=== PATIENT | female | born 1965 | race African-American/Black ===

== ENCOUNTER 2017-02-18 13:09 | Emergency (ER) | payer OTHER ==
[~2017-02-18] VITALS: Ht 167.6 cm; Wt 72.6 kg
[~2017-02-18 13:09] MED LIST: CELEXA 10 MG TA10 M1 PO; CYMBALTA20 MG; DIFLUCAN150 MG PO; FLEXERIL PO; HYDROXYZINE HCL10 M1 PO; K-DUR 20 MEQ T20 MEQ PO; LASIX 20 MG TAB20 MG PO; NAPROSYN500 MG PO; NOHOMEMEDICATIONS; NORCO 5-325 TA1 EACH PO; NORFLEX100 MG PO; OXYCODONE HCL10 MG PO; PERCOCET; PERIACTIN PO; PREDNISONE 20 M20 MG PO; PROPRANOLOL 1010 MG PO; REGLAN 10 MG TA10 MG PO; TRAMADOL 50 MG50 MG PO; ULTRAM 50MG TAB50 MG PO; ZANAFLEX4 MG PO; ZOFRAN4 MG PO
[2017-02-18 13:10] VITALS: BP 144/109
== END 2017-02-18 13:42 | disposition left against medical advice (07) ==
LOC: ER 13:09
DX: Z53.21 Procedure and treatment not carried out due to patient leaving prior to being seen by health care provider (principal)

== ENCOUNTER → 2017-03-21 | Outpatient (CLI) | payer OTHER | LOC: RAD 08:00 | DX: Z12.31 Encounter for screening mammogram for malignant neoplasm of breast (principal) ==

== ENCOUNTER 2019-12-14 17:17 | Inpatient (IN) | payer OTHER ==
[~2019-12-14] VITALS: Ht 167.6 cm; Wt 98.4 kg
[2019-12-14 17:45] VITALS: BP 124/78
[2019-12-14 19:08] LABS: ANION GAP 7 mmol/L (7-16); BUN 16 mg/dL (7-18); CALCIUM 8.5 mg/dL (8.5-10.1); CHLORIDE 104 mmol/L (98-107); CO2 29 mmol/L (21-32); CREATININE 1.2 mg/dL (0.6-1.0); GLUCOSE 100 mg/dL (74-106); POTASSIUM 4.4 mmol/L (3.5-5.1); SODIUM 140 mmol/L (136-145)
[2019-12-14 19:09] LABS: HEMATOCRIT 28.5 % (37.0-47.0); HEMOGLOBIN 9.3 gm/dL (12.0-15.0); MCH 27.3 pg (26.0-34.0); MCHC 32.5 g/dL (28.0-37.0); MCV 83.9 fL (80.0-100.0); PLATELET COUNT 168 thou/uL (150-400); RBC 3.39 mil/uL (4.20-5.00); RDW 15.5 % (10.5-14.5); WBC 2.3 thou/uL (4.0-11.0)
[2019-12-14 19:18] LABS: ALBUMIN 3.5 g/dL (3.4-5.0); MAGNESIUM 2.1 mg/dL (1.8-2.4); SGOT 54 U/L (15-37); SGPT 52 U/L (30-65); TOTAL BILIRUBIN 0.3 mg/dL (0.2-1.0); TOTAL PROTEIN 7.1 g/dL (6.4-8.2); TROPONIN-I <0.06 ng/mL (<0.06)
[2019-12-14] MEDS ORDERED: HYDROXYZINE HCL50 MG PO (19:20)
[2019-12-14] MEDS ORDERED: AMITRIPTYLINE100 MG PO (19:21)
[2019-12-14] MEDS ORDERED: ZANAFLEX2 M1 PO (19:21)
[2019-12-14] MEDS ORDERED: DRIZALMA SPRINK20 MG PO (19:21)
[2019-12-14 19:25] LABS: D-DIMER 0.42 ug/mLFEU (0.19-0.50); PROTIME 10.4 Seconds (9.3-11.4)
[2019-12-14 20:06] LABS: ABSOLUTE NEUTROPHILS 1.5 thou/uL (1.4-8.2); PLATELET ESTIMATE NORMAL
[2019-12-14 23:00] LABS: URINE BILIRUBIN NEGATIVE (Negative); URINE BLOOD NEGATIVE (Negative); URINE CLARITY CLEAR; URINE COLOR YELLOW; URINE GLUCOSE-RANDOM* NEGATIVE (Negative); URINE KETONES NEGATIVE (Negative); URINE LEUKOCYTES-REFLEX NEGATIVE (Negative); URINE NITRITE-REFLEX NEGATIVE (Negative); URINE PROTEIN (DIPSTICK) NEGATIVE (Negative); URINE SPECIFIC GRAVITY <= 1.005 (1.005-1.035); URINE UROBILINOGEN 0.2 E.U./dl (0.2-1.0)
[2019-12-14 23:09] VITALS: BP 162/106
[2019-12-14 23:13] VITALS: BP 167/106
[2019-12-15 00:05] VITALS: BP 153/115
[2019-12-15 03:01] LABS: AMP/METHAMP Negative (Negative); BARBITURATES Negative (Negative); BENZODIAZEPINES Negative (Negative); COCAINE Negative (Negative); METHADONE Negative (Negative); OPIATES Negative (Negative); PCP Negative (Negative)
--- NOTE | 2019-12-15 03:49 | NUR ---
PT ARRIVED FROM THE ER @2320 THIS SHIFT. A&OX4. ADMISSION DONE AND PT ORIENTED TO THE UNIT. C/O PAIN IV FENTANYL GIVEN. PT UP ADLIB. IV INTACT AND SL. ILYA LOWER EXT SWELLING NOTED. CALL LIGHT IN REACH WILL CONT TO MONITOR.
[2019-12-15 04:15] VITALS: BP 172/96
--- NOTE | 2019-12-15 08:29 | EKG ---
[facility] [place] [address] ELECTROCARDIOGRAM REPORT Name: TAMAR COYLE Room #: 447-P ADM IN M.R.#: [id number] Admission: 12/14/19 Attend Phys: Leena Cho Discharge: Date of : 67 Report #: [id number] THIS REPORT FOR: cc: BRADY - No family physician/PCP FAM - No family physician/PCP Edy York MD [facility] THIS REPORT FOR: //name// [facility] ED Test Date: 2019-12-14 Test Time: 18:52:46 Pat Name: TAMAR COYLE Department: Room: [facility] Gender: F Manager Recruiting: JAXSON : 1965 Requested By: Medardo Rockwell Order Number: [id number] MD: Edy York Measurements Intervals [place] Rate: 89 P: 23 [place]: 156 QRS: 3 QRSD: 95 T: 24 QT: 365 QTc: 445 Interpretive Statements Sinus rhythm Anteroseptal infarct, old Compared to ECG 12/16/2015 16:00:34 No significant changes Electronically Signed On 12-15-2019 8:29:10 CDT by Edy York [email or web address] <ELECTRONICALLY SIGNED> By: Edy York MD, [facility] 12/15/19 0829 [id number] Edy York MD, [facility] /EPI
[2019-12-15 09:48] VITALS: BP 212/135
[2019-12-15 16:33] VITALS: BP 128/86
--- NOTE | 2019-12-15 18:23 | NUR ---
PT IS AOX4, VSS, BLOOD PRESSURE ELEVATED THIS MORNING. PT RECEIVED NEW ORDER FOR BLOOD PRESSURE MEDS. PT REPORTS PAIN 8-10 IN BLE. PAIN CONTROLLED WITH IV ANALGESIC. PT HAD SOME NAUSEA, NURSE GAVE IV ZOFRAN. PT CALLS APPROPRIATELY, UP AD NEGRITA IN ROOM. WILL CONT. TO MONITOR.
[2019-12-15 21:37] VITALS: BP 120/83
[2019-12-16 05:50] VITALS: BP 122/92
[2019-12-16 06:35] LABS: CALCIUM 9.3 mg/dL (8.5-10.1); MAGNESIUM 2.3 mg/dL (1.8-2.4); POTASSIUM 3.6 mmol/L (3.5-5.1); TOTAL BILIRUBIN 0.9 mg/dL (0.2-1.0); TOTAL PROTEIN 8.3 g/dL (6.4-8.2)
--- NOTE | 2019-12-16 07:37 | NUR ---
PT AOX4. PT REPORTS PAIN IN BLE. PT RECEIVING PRN IV FENTANYL Q4HR. PT TOLERATING PO INTAKE OF FLUIDS, NOTED TO HAVE DECREASED PO INTAKE OF HEART HEALTHY DIET, LESS THAN 25% OF DINNER EATEN. PT AMBULATES INDEPENDENTLY WITH STANDBY ASSIST IN ROOM AND TO BATHROOM. PT AWAKENED WITH BREATHROUGH PAIN. ONCALL PROVIDER NOTIFIED, EMAR UPDATED. PT RECEIVED 2MG MORPHINE IV ONETIME. ENCOURAGED PT TO NOTIFY STAFF FOR ALL NEEDS. CALL LIGHT WITHIN REACH, BED ALARM ON, BED IN LOWEST POSITION. WILL CONTINUE TO MONITOR.
[2019-12-16] MEDS ORDERED: TRANDATE 200 M200 M1 PO (09:58)
--- NOTE | 2019-12-16 10:07 | 2DMMODE ---
[facility] [address] [place] [address] 2 D/M-MODE ECHOCARDIOGRAM Name: TAMAR COYLE Pretty Room #: 447-P ADM IN M.R.#: [id number] Admission: 12/14/19 Attend Phys: Leena Cho Discharge: Date of : 67 Report #: [id number] THIS REPORT FOR: cc: FAM - No family physician/PCP FAM - No family physician/PCP Hank Mckeon MD ~ APPROVED REPORT Study performed: 12/16/2019 08:18:20 EXAM: Comprehensive 2D, Doppler, and color-flow Echocardiogram Patient Location: Bedside Room #: [facility] Status: routine BSA: 2.07 HR: 98 bpm BP: 122/92 mmHg Other Information Study Quality: Adequate Indications Hypertension/HDD Anasarca 2D Dimensions RVDd: 30.20 mm IVSd: 10.64 (7-11mm) LVOT Diam: 21.20 (18-24mm) LVDd: 42.97 mm PWd: 11.02 (7-11mm) Ascending Ao: 28.41 (22-36mm) LVDs: 31.04 (25-40mm) Aortic Root: 31.48 mm IVC: 14.00 mm Volumes Left Atrial Volume (Systole) Single Plane 4CH: 21.23 mL Single Plane 2CH: 22.31 mL LA ESV Index: 12.00 mL/m2 Aortic Valve AoV Peak Benjamin.: 1.43 m/s AO Peak Gr.: 8.20 mmHg LVOT Max P.12 mmHg LVOT Max V: 0.88 m/s FILIBERTO Vmax: 2.18 cm2 [facility] [address] [place] [address] 2 D/M-MODE ECHOCARDIOGRAM Name: TAMAR COYLE Room #: 447-P [facility]#: [id number] Admission: 12/14/19 Attend Phys: Leena Bravo Discharge: Date of : 67 Report #: [id number] Mitral Valve E/A Ratio: 0.8 MV Decel. Time: 144.89 ms MV E Max Benjamin.: 0.59 m/s MV A Benjamin.: 0.74 m/s MV PHT: 42.02 ms IVRT: 119.95 ms Pulmonary Valve PV Peak Benjamin.: 1.05 m/s PV Peak Gr.: 4.46 mmHg Pulmonary Vein P Vein S: 0.60 m/s P Vein A: 0.26 m/s P Vein D: 0.45 m/s P Vein A Dur.: 103.8 msec P Vein S/D Ratio: 1.33 Tricuspid Valve TR Peak Benjamin.: 2.33 m/s RAP Estimate: 5.00 mmHg TR Peak Gr.: 21.63 mmHg PA Pressure: 27.00 mmHg Left Ventricle The left ventricle is normal size. There is normal LV segmental wall motion. There is normal left ventricular wall thickness. The left ventricular systolic function is normal. The left ventricular ejection fraction is within the normal range. LVEF is 55-60%. Transmitral Doppler flow pattern suggests impaired LV relaxation. Right Ventricle The right ventricle is normal size. The right ventricular systolic function is normal. Atria The left atrium size is normal. The right atrium size is normal. Aortic Valve The aortic valve is normal in structure. No aortic regurgitation is present. There is no aortic valvular stenosis. Mitral Valve The mitral valve is normal in structure. There is no mitral valve regurgitation noted. No evidence of mitral valve stenosis. Tricuspid Valve [facility] [address] [place] [address] 2 D/M-MODE ECHOCARDIOGRAM Name: TAMAR COYLE Pretty Room #: 447-P [facility] IN M.R.#: [id number] Admission: 12/14/19 Attend Phys: Leena Bravo Discharge: Date of : 67 Report #: [id number] The tricuspid valve is normal in structure. Mild tricuspid regurgitation. PAP is estimated at 27 mmHg. Pulmonic Valve Pulmonic valve is not well visualized. Great Vessels The aortic root is normal in size. IVC is normal in size and collapses >50% with inspiration. Pericardium There is no pericardial effusion. <Conclusion> The left ventricle is normal size. There is normal left ventricular wall thickness. The left ventricular systolic function is normal. The right ventricle is normal size. The left atrium size is normal. The aortic valve is normal in structure. There is no mitral valve regurgitation noted. Mild tricuspid regurgitation. PAP is estimated at 27 mmHg. <ELECTRONICALLY SIGNED> By: Hank Mckeon MD 12/16/19 1006 1006 1006 Hank Mckeon MD /INF
[2019-12-16 14:26] VITALS: BP 122/92
== END 2019-12-16 16:06 | disposition home or self-care (01) | DRG 305 ==
LOC: ER 17:17 → 4S 20:13 → EROBS 20:13 → 4S 23:17
PROVIDERS: Emergency Medicine; Nurse Practitioner Family; ADMIT Hospitalist; ATTEND Hospitalist
DX: I16.9 Hypertensive crisis, unspecified (principal); D72.819 Decreased white blood cell count, unspecified; M51.16 Intervertebral disc disorders with radiculopathy, lumbar region; M51.26 Other intervertebral disc displacement, lumbar region; K21.9 Gastro-esophageal reflux disease without esophagitis; J45.909 Unspecified asthma, uncomplicated; D64.9 Anemia, unspecified; G89.29 Other chronic pain; M54.9 Dorsalgia, unspecified; K22.0 Achalasia of cardia; Z79.899 Other long term (current) drug therapy; Z90.49 Acquired absence of other specified parts of digestive tract; Z88.0 Allergy status to penicillin; Z88.6 Allergy status to analgesic agent; Z88.8 Allergy status to other drugs, medicaments and biological substances; Z90.710 Acquired absence of both cervix and uterus; Z91.041 Radiographic dye allergy status; Z80.3 Family history of malignant neoplasm of breast; Z82.79 Family history of other congenital malformations, deformations and chromosomal abnormalities; Z80.8 Family history of malignant neoplasm of other organs or systems
CPT/HCPCS: 10195